=== PATIENT | male | born 1995 | race Caucasian/White ===

== ENCOUNTER 2019-07-04 16:41 | Observation (INO) ==
[2019-07-04 17:24] LABS: Basophils # 0.1 K/mcL (0.0-0.2); Basophils % 0.6 %; Eosinophils # 0.1 K/mcL (0.0-0.6); Eosinophils % 0.9 %; Hematocrit 42.3 % (37.5-50.1); Hemoglobin 15.2 g/dL (12.9-16.9); Immature Granulocytes % 0.5 % (0-4); Lymphocytes # 2.4 K/mcL (0.6-4.6); Lymphocytes % 20.6 %; Mean Corpuscular HGB Conc 35.9 g/dL (31.6-35.5); Mean Corpuscular Hemoglobin 31.6 pg (28.0-33.3); Mean Corpuscular Volume 87.9 fL (83.0-100.0); Mean Platelet Volume 9.4 fL (9.4-12.4); Monocytes % 8.7 %; Neutrophils # 8.1 K/mcL (1.6-8.9); Platelet Count 306 K/mcL (140-400); Red Blood Count 4.81 M/mcL (4.19-5.50); Red Cell Distribution Width 12.5 % (11.5-14.5); Segmented Neutrophils % 68.7 %; White Blood Count 11.8 K/mcL (4.3-11.1)
[2019-07-04] MEDS ORDERED: *HR* FentaNYL (PF) 100 MCG/2 ML VIAL IVP STA (17:26)
[2019-07-04 17:46] LABS: Alanine Aminotransferase 37 Units/L (7-52); Albumin 4.6 g/dL (3.5-5.7); Albumin/Globulin Ratio 2.1 (1.1-2.2); Alkaline Phosphatase 50 Units/L (34-104); Aspartate Amino Transferase 23 Units/L (13-39); Bilirubin,Total 0.5 mg/dL (0.3-1.0); Blood Urea Nitrogen 9 mg/dL (6-20); Calcium 9.7 mg/dL (8.6-10.3); Carbon Dioxide 31 mEq/L (23-29); Chloride 104 mEq/L (98-107); Globulin 2.2 g/dL (2.4-3.5); Glucose 89 mg/dL (70-105); Osmolality,Calculated 286 (280-300); Sodium 139 mEq/L (136-145); Total Protein 6.8 g/dL (6.4-8.9)
[2019-07-04 18:24] LABS: BUN/Creatinine Ratio 12 (6-26); eGFR For African Americans > 60 (> 60); eGFR For Non-African Americans > 60 (> 60)
[2019-07-04] MEDS ORDERED: *HR* Propofol 200 MG/20 ML VIAL IVP ONE ×2 (19:09→21:07)
[2019-07-04] MEDS ORDERED: *HR* FentaNYL (PF) 100 MCG/2 ML VIAL ONE (19:09)
[2019-07-04] MEDS ORDERED: Lidocaine -MPF 2% 2 ML VIAL ONE (19:11)
[2019-07-04] MEDS ORDERED: Ondansetron 4 MG/2 ML VIAL ONE (19:11)
[2019-07-04] MEDS ORDERED: Dexamethasone 4 MG/ML VIAL ONE (19:11)
[2019-07-04] MEDS ORDERED: *HR* Succinylcholine 200 MG/10 ML VIAL IVP ONE (19:11)
[2019-07-04] MEDS ORDERED: *HR* HYDROmorphone (PF) 1 MG/ML SYRINGE IVP PRN (20:16)
[2019-07-04] MEDS ORDERED: Ondansetron 4 MG/2 ML VIAL IVP ONE (20:16)
[2019-07-04] MEDS ORDERED: *HR* Promethazine 25 MG/ML VIAL IVP PRN (20:16)
[2019-07-04] MEDS ORDERED: *HR* OxyCODONE Immed Rel 5 MG TABLET PO PRN (20:16)
[2019-07-04] MEDS ORDERED: *HR* Rocuronium Bromide 50 MG/5 ML VIAL ONE (20:29)
[2019-07-04 23:10] VITALS: BP 141/89
== END 2019-07-05 02:46 | disposition home or self-care (01) ==
LOC: EMEROOARM 16:41 → 3ANU 16:41
PROVIDERS: ADMIT Surgery; ATTEND Surgery